=== PATIENT | female | born 1980 | race Two or more races ===

== ENCOUNTER 2018-10-04 08:52 | Emergency (ER) | payer SELFPAY ==
[~2018-10-04] VITALS: Ht 172.7 cm; Wt 105.0 kg
[2018-10-04 09:00] VITALS: Ht 172.7 cm; Wt 105.0 kg
[2018-10-04] MEDS ORDERED: LORAZEPAM 0.5 MG TAB PO ONE (10:00)
[2018-10-04 11:18] VITALS: BP 129/74; PULSE 73; RESP 18
--- NOTE | 2018-10-04 22:34 | ERD ---
ER Documentation Chief Complaint Chief Complaint palpitation upon waking this am w/ringing in ears recent cough HPI Patient is a 38-year-old female with no past medical history presents to the ER for concerns of palpitations started upon waking up this morning. Patient states she felt as if her heart was racing. Patient states she was also having hot flashes, throat tightness and difficulty hearing. Patient states she felt numbness and tingling in her bilateral hands. Since that time, symptoms have improved. Patient no longer having palpitations at this time. Patient denies any chest pain or shortness of breath at this time. Patient states she has had anxiety attacks in the past however this 1 felt different as she woke up with symptoms. Patient denies any fevers or chills. Patient states her last menstrual period was on 09-16-18. Patient denies any recent travel. Patient denies any suicidal or homicidal ideations. ROS All systems reviewed and are negative except as per history of present illness. Allergies Allergies: Coded Allergies: No Known Allergy (Unverified , 12/07/13) PMhx/Soc Medical and Surgical Hx: pt denies Medical Hx, pt denies Surgical Hx Hx Alcohol Use: No Hx Substance Use: No Hx Tobacco Use: No FmHx Family History: No diabetes, No coronary disease, No other Physical Exam Vitals Vital Signs Date Temp Pulse Resp B/P (MAP) Pulse Ox O2 O2 Flow FiO2 Time Delivery Rate 10/04/18 98.3 73 18 129/74 100 Room Air 11:18 (92) 10/04/18 98.0 88 18 155/69 99 09:00 (97) Physical Exam GENERAL: Well-developed, well-nourished female. Appears in no acute distress. Speaking full sentences. HEAD: Normocephalic, atraumatic. EYES: Pupils are equally reactive bilaterally. EOMs grossly intact. No conjunctival erythema. ENT: Moist mucous membranes. No uvula deviation. No kissing tonsils. NECK: Supple. No meningismus. Normal range of motion of the neck. LUNG: Clear to auscultation bilaterally. No rhonchi, wheezing, rales or coarse breath sounds. HEART: Regular rate and rhythm. No murmurs, rubs or gallops. Equal pulses in bilateral upper extremities. BACK: No midline tenderness. EXTREMITIES: Equal pulses bilaterally. No peripheral clubbing, cyanosis or edema. No unilateral leg swelling. NEUROLOGIC: Alert and oriented. Moving all four extremities without any difficulty. Normal speech. Steady gait. SKIN: Normal color. Warm and dry. No rashes or lesions. Result Diagram: 10/04/1894810/04/18948 Results 24 hrs Laboratory Tests Test 10/04/18 09:49 10/04/18 09:52 White Blood Count 13.6 10^3/ul Red Blood Count 4.89 10^6/ul Hemoglobin 12.6 g/dl Hematocrit 39.5 % Mean Corpuscular Volume 80.8 fl Mean Corpuscular Hemoglobin 25.8 pg Mean Corpuscular Hemoglobin Concent 31.9 g/dl Red Cell Distribution Width 12.6 % Platelet Count 415 10^3/UL Mean Platelet Volume 10.3 fl Immature Granulocytes % 0.600 % Neutrophils % 75.5 % Lymphocytes % 17.2 % Monocytes % 4.0 % Eosinophils % 2.3 % Basophils % 0.4 % Nucleated Red Blood Cells % 0.0 /100WBC Immature Granulocytes # 0.080 10^3/ul Neutrophils # 10.3 10^3/ul Lymphocytes # 2.3 10^3/ul Monocytes # 0.5 10^3/ul Eosinophils # 0.3 10^3/ul Basophils # 0.1 10^3/ul Nucleated Red Blood Cells # 0.0 10^3/ul Sodium Level 141 mmol/L Potassium Level 4.6 mmol/L Chloride Level 108 mmol/L Carbon Dioxide Level 25 mmol/L Anion Gap 8 Blood Urea Nitrogen 11 mg/dl Creatinine 0.60 mg/dl Est Glomerular Filtrat Rate mL/min > 60 mL/min Glucose Level 102 mg/dl Calcium Level 9.3 mg/dl Troponin I < 0.012 ng/ml POC Beta HCG, Qualitative NEGATIVE Current Medications Medications Dose Sig/Jeff Start Time Status Last (Trade) Ordered Route PRN Stop Time Admin Dose Reason Admin Lorazepam 0.5 mg ONCE ONCE 10/04/18 DC 10/04/18 (Ativan) PO 10:00 09:55 10/04/18 10:01 Procedures/MDM x ED COURSE: The patient was stable throughout ED course. I kept the patient and/or family informed of laboratory and diagnostic imaging results throughout the ED course. EKG: Read by Dr. Pinto, attending physician. EKG shows normal sinus rhythm at a rate of 81 bpm No arrhythmias, acute ST elevations or T wave changes were noted. DIAGNOSTIC IMAGING: Read by radiologist. DIAGNOSTIC IMAGING REPORT Patient: ANA LO : 1980 Age: 38 Sex: F MR #: [id number] [facility] #: [id number] DOS: 10/04/18 0938 Ordering MD: PORTILLO MITCHELL PA-C Location: [facility]TE Room/Bed: PROCEDURE: CHEST - 1 VIEW CLINICAL INDICATION: 38-year-old female with shortness of breath and palpitations. TECHNIQUE: A single frontal AP upright view of the chest was performed. The images were reviewed on a PACS workstation. COMPARISON: None. FINDINGS: The cardiomediastinal silhouette has a normal appearance. There is a shallow inspiration. There is no evidence for an infiltrate. There is no evidence for congestive heart failure. There is no evidence for pneumothorax. The osseous structures are intact. IMPRESSION: No evidence for active cardiopulmonary disease. .Jamir Valladares MD, MD Date Time Electronically viewed and signed by .Jamir Valladares MD, MD on 10/04/2018 10:50 PROCEDURES: None. MEDICATIONS GIVEN: Ativan Patient tolerated medication well with no adverse reactions. Patient reported improvement in pain. MEDICAL DECISION MAKING: This is a 38-year-old female presented to the ER for concerns of palpitations, hot flashes, difficulty hearing, hand numbness and tingling which started upon waking up this morning. Patient admits to history of anxiety. Since arrival to the emergency department, symptoms have improved. Patient no longer reports any symptoms of palpitations, chest pain, shortness of breath. Vital signs were reviewed. Patient was afebrile. Patient was not hypoxic. Cardiac exam was normal. Lung exam was normal. Blood work was obtained. CBC showed WBC count of 13.6. Likely related to stress reaction. BMP showed no severe electrolyte abnormalities, no acidosis, no alkalosis or evidence of renal failure. Troponin was within normal limits. Urine test was negative. EKG showed normal sinus rhythm, no ST elevations, reviewed by ED attending Dr. Pinto. Chest x-ray was within normal limits. Patient was given Ativan here in the ER. Upon reexamination, patient reported improvement in symptoms. I do feel the patient's symptoms are related to anxiety. Patient was advised on deep breathing anxiety management techniques. Low suspicion for ACS, arrhythmia, pericarditis, PE, pneumothorax, pneumonia, pleural effusion, cardiac tamponade, aortic dissection, severe electrolyte abnormalities, sepsis, other emergent processes. Patient was nontoxic, [id number] prior to discharge. DISCHARGE: At this time, patient is stable for discharge and outpatient management. I have instructed the patient to follow-up with his/her primary care physician in 1-2 days. If symptoms persist, patient may need to see a specialist for further examinations and testing. I have instructed the patient to promptly return to the ER at any time for any new or worsening symptoms including increased inc reased pain, fever, nausea, vomiting, numbness, weakness, diaphoresis or LOC. The patient and/or family expressed understanding of and agreement with this plan. All questions were answered. Home care instructions were provided. Disclaimer: Inadvertent spelling and grammatical errors are likely due to EHR/dictation software use and do not reflect on the overall quality of patient care. Also, please note that the electronic time recorded on this note does not necessarily reflect the actual time of the patient encounter. Departure Diagnosis: Primary Impression: Anxiety reaction Additional Impression: Palpitations Condition: Fair Patient Instructions: Anxiety Reaction Referrals: [facility] YOU HAVE RECEIVED A MEDICAL SCREENING EXAM AND THE RESULTS INDICATE THAT YOU DO NOT HAVE A CONDITION THAT REQUIRES URGENT TREATMENT IN THE EMERGENCY DEPARTMENT. FURTHER EVALUATION AND TREATMENT OF YOUR CONDITION CAN WAIT UNTIL YOU ARE SEEN IN YOUR DOCTORS OFFICE WITHIN THE NEXT 1-2 DAYS. IT IS YOUR RESPONSIBILITY TO MAKE AN APPOINTMENT FOR FOL-UP CARE. IF YOU HAVE A PRIMARY DOCTOR --you should call your primary doctor and schedule an appointment IF YOU DO NOT HAVE A PRIMARY DOCTOR YOU CAN CALL OUR PHYSICIAN REFERRAL HOTLINE AT IF YOU CAN NOT AFFORD TO SEE A PHYSICIAN YOU CAN CHOSE FROM THE FOLLOWING [facility] CLINICS [facility] [address] [facility]. [facility] [address]. [facility] [address] [facility]. [facility] [address] [facility]. [facility] [address] [facility]. [facility]. [address] [facility]. [facility] YOU HAVE RECEIVED A MEDICAL SCREENING EXAM AND THE RESULTS INDICATE THAT YOU DO NOT HAVE A CONDITION THAT REQUIRES URGENT TREATMENT IN THE EMERGENCY DEPARTMENT. FURTHER EVALUATION AND TREATMENT OF YOUR CONDITION CAN WAIT UNTIL YOU ARE SEEN IN YOUR DOCTORS OFFICE WITHIN THE NEXT 1-2 DAYS. IT IS YOUR RESPONSIBILITY TO MAKE AN APPOINTMENT FOR FOLOW-UP CARE. IF YOU HAVE A PRIMARY DOCTOR --you should call your primary doctor and schedule and appointment IF YOU DO NOT HAVE A PRIMARY DOCTOR YOU CAN CALL OUR PHYSICIAN REFERRAL HOTLINE AT . IF YOU CAN NOT AFFORD TO SEE A PHYSICIAN YOU CAN CHOSE FROM THE FOLLOWING [facility] INSTITUTIONS: [facility] [address] [place] [address] [facility] [address] [place], [place] [id number] [place] [address] [address] [place] [address] Additional Instructions: Call your primary care doctor TOMORROW for an appointment during the next 1-2 days.See the doctor sooner or return here if your condition worsens before your appointment time. PORTILLO MITCHELL PA-C October 04, 2018 22:34
== END 2018-10-04 11:20 | disposition home or self-care (01) ==
LOC: FTE 08:52
DX: F41.1 Generalized anxiety disorder (principal)
CPT/HCPCS: 36415; 71045; 80048; 81025; 84484; 85025; 93005